=== PATIENT | female | born 1970 | race Caucasian/White ===

== ENCOUNTER → 2021-07-25 | Day surgery (SDC) | payer OTHER ==
[~2021-07-25] MED LIST: ATORVASTATIN CA20 MG PO; BUPIVACAINE HCL 0.5% INJ 30 ML VIAL INJ ONE; BUSPIRONE HCL10 MG PO; CENTRUM ADULTS1 EACH PO; CIMETIDINE200 MG PO; FAMOTIDINE20 MG PO; FENTANYL CITRATE/PF 100MCG/2 ML INJ ONE; HAIR, SKIN & N1 EACH PO; LEVOTHYROXINE50 MCG PO; LIDOCAINE 2%/ EPINEPHRINE 20ML MDV ONE; MELATONIN3 MG PO; MELOXICAM7.5 MG PO; METOPROLOL PO; METOPROLOL TART50 MG PO; MORPHINE SULFATE INJ 2 MG/ML SYR ONE; PAROXETINE HCL20 MG PO; SODIUM CHLORIDE 0.9% 50ML 100 ML ONE; TOPAMAX25 MG PO; TRAZODONE HCL50 MG PO; VITAMIN B122500 MCG PO
[2021-07-25 17:25] VITALS: BP 144/73
== END | disposition home or self-care (01) ==
LOC: OR 11:54
PROVIDERS: ATTEND Orthopaedic Surgery
DX: S83.281A Other tear of lateral meniscus, current injury, right knee, initial encounter (principal); M22.41 Chondromalacia patellae, right knee; S83.231A Complex tear of medial meniscus, current injury, right knee, initial encounter; M67.51 Plica syndrome, right knee; S82.201G Unspecified fracture of shaft of right tibia, subsequent encounter for closed fracture with delayed healing; E03.9 Hypothyroidism, unspecified; K21.9 Gastro-esophageal reflux disease without esophagitis; I10 Essential (primary) hypertension; F31.9 Bipolar disorder, unspecified; F41.0 Panic disorder [episodic paroxysmal anxiety]; X58.XXXA Exposure to other specified factors, initial encounter; Z88.8 Allergy status to other drugs, medicaments and biological substances; Z01.810 Encounter for preprocedural cardiovascular examination; Z01.812 Encounter for preprocedural laboratory examination; Z20.822 Contact with and (suspected) exposure to COVID-19
CPT/HCPCS: 20680; 29881; 76000; 81025; 93005; J0690; J2001; J2270; J3010; U0002